=== PATIENT | male | born 1960 | race Caucasian/White ===

== ENCOUNTER 2017-03-28 13:17 | Emergency (ER) | payer OTHER ==
[2017-03-28 14:29] VITALS: BP 108/73; RESP 20; TEMP 98.1; O2SAT 97
--- NOTE | 2017-03-28 14:58 | EDPHY ---
H & P Time Seen by Provider: 03/28/17 14:31 HPI/ROS: CHIEF COMPLAINT: Left knee pain and swelling HISTORY OF PRESENT ILLNESS: 56-year-old male presents to the emergency department by private vehicle with pain and swelling to the left knee. Denies any known trauma or injury. He noted some mild pain to the left knee approximately 1 week ago and his has progressively become worse. He noticed within even last 24 hours and is more swollen and red. He has pain especially when he tries to bear weight or with certain movement. He denies fevers or chills. He has no known trauma. No bite. No pain radiating up into his groin. ROS: Denies numbness or tingling in his toes, fevers, chills, groin pain, lymphangitis Past Medical/Surgical History: Cellulitis Social History: Divorce and lives in [place] Smoking Status: Never smoked Physical Exam: Examination of the left knee reveals redness and warmth to the anterior superior aspect of his left knee especially. It is swollen specially the superior aspect of the left knee. He has limited flexion secondary to pain. He has no pain however with very small passive range of motion. He is able to fully extend his left knee. There is no lymphangitis. No pain with palpation in the left groin. Left calf is nontender. Left ankle is nontender. Constitutional: Initial Vital Signs Temperature (C) 37 C 03/28/17 13:30 Heart Rate 68 03/28/17 13:30 Respiratory Rate 19 03/28/17 13:30 Blood Pressure 125/85 H 03/28/17 13:30 O2 Sat (%) 98 03/28/17 13:30 O2 Delivery Mode Room Air Allergies/Adverse Reactions: codeine Allergy (Verified 03/28/17 13:28) sulfamethoxazole [From Bactrim] Allergy (Verified 03/28/17 13:28) trimethoprim [From Bactrim] Allergy (Verified 03/28/17 13:28) Home Medications: Medication Instructions Recorded Amlodipine Besylate 03/28/17 Cephalexin [Keflex] 500 mg PO QID #28 cap 03/28/17 Hydrochlorothiazide 03/28/17 Lisinopril 03/28/17 MDM/Departure - MDM Medications Given: Discontinued Medications Cephalexin (Keflex 500 Mg Prepack#4) 1 btl TAKEHOME EDNOW ONE PRN Reason: Protocol Stop: 03/28/17 15:34 Last Admin: 03/28/17 15:35 Dose: 1 btl ED Course/Re-evaluation: 56-year-old male presents to the emergency department with pain and swelling to his left knee. Clinically I do not think he has a septic joint. He has no pain with passive range of motion of the left knee. He does have signs of cellulitis and it is showing signs of redness and warmth. I did ask Dr. Parvez Crane, secondary supervising physician, to evaluate the patient's knee , and he does not recommend aspirating fluid from the joint since he has signs of cellulitis. There is risk of developing joint infection with this. He understands this. Patient will be started on Keflex. He was given orthopedic referral will follow up with orthopedist on-call this week. He was instructed to return if he developed lymphangitis, worsening pain, fevers or chills, or if he felt worse in any way. - Depart Disposition: Home, Routine, Self-Care Clinical Impression: Cellulitis Qualifiers: Site of cellulitis: extremity Site of cellulitis of extremity: lower extremity Laterality: left Qualified Code(s): L03.116 - Cellulitis of left lower limb Bursitis Qualifiers: Bursitis location: knee Knee bursitis location: suprapatellar bursitis Laterality: left Qualified Code(s): M70.52 - Other bursitis of knee, left knee Condition: Good Instructions: Cellulitis (ED), Knee Bursitis (ED) Additional Instructions: Keflex 500mg for 1 week. Follow up with orthopedic surgeon this week to recheck. Return to the emergency department if you developed red streaking up your leg, pain in your left groin, fevers or chills, or if you feel worse in any way. Ibuprofen 600 mg every 8 hours as needed for pain. Prescriptions: Cephalexin [Keflex] 500 mg PO QID #28 cap Referrals: Sarah Zheng MD [Primary Care Provider] - As per Instructions Manohar Hinds MD [Medical Doctor] - 2-3 days, call for appt. (Orthopedic surgeon on-call)
[2017-03-28] MEDS ORDERED: CEPHALEXIN 500MG PREPACK#4 BTL TAKEHOME ONE (15:33)
[2017-03-28 15:40] VITALS: PULSE 84
== END 2017-03-28 15:40 | disposition home or self-care (01) ==
DX: L03.116 Cellulitis of left lower limb (principal); M70.52 Other bursitis of knee, left knee